=== PATIENT | female | born 1970 | race Caucasian/White ===

== ENCOUNTER 2016-05-03 16:30 | Outpatient (CLI) | payer OTHER ==
--- NOTE | 2016-05-03 23:36 | RAD ---
CHEST TWO VIEWS: Date: 05-03-16 FINDINGS: The heart is normal in size. The lungs are clear. No infiltrate, effusion or adenopathy was seen. There is no sign of active thoracic disease. The mediastinum appears normal. IMPRESSION: No significant findings. POS: HOME
== END 2016-05-03 16:31 | disposition home or self-care (01) ==
LOC: BURRAD 16:30
PROVIDERS: ATTEND Nurse Practitioner
DX: R76.11 Nonspecific reaction to tuberculin skin test without active tuberculosis (principal)
CPT/HCPCS: 71020